=== PATIENT | female | born 1950 | race Caucasian/White ===

== ENCOUNTER → 2017-03-10 | Outpatient (CLI) | payer MEDICARE ==
[~2017-03-10] MED LIST: AMLO5TAB2 PO; ASPI-621 PO; CALC-35 PO; GABA300C10 PO; HYDR25TA6 PO; MELO-184 PO; ONDA4TAB7 PO; OXYC5TAB3 PO; TRAM50TA2 PO; VALS1TAB26 PO; [UNRECOGNIZED DRUG - CODE] PO
[2017-03-13 15:59] LABS: ASPARTATE AMINO TRANSFERASE 17 U/L (15-37); BLOOD UREA NITROGEN 21 mg/dL (7-18)
== END | disposition home or self-care (01) ==
LOC: STAR 10:10
PROVIDERS: ATTEND Orthopaedic Surgery
DX: M17.0 Bilateral primary osteoarthritis of knee (principal); Z96.652 Presence of left artificial knee joint
CPT/HCPCS: 36415; 80053; 81003; 85025; 87081; 87147

== ENCOUNTER 2017-03-19 08:32 | Inpatient (IN) | payer MEDICARE, OTHER ==
[~2017-03-19] VITALS: Ht 154.9 cm; Wt 93.0 kg
[~2017-03-19 08:32] MED LIST changes: +EPINEPHRINE 1 MG/ML, 1ML ONE; +KETOROLAC 60 MG/2 ML ONE; +ROPIvacaine/PF 0.2%, 20 ML ONE; +TRANEXAMIC ACID 100 MG/ML, 10ML ONE; +VANCOMYCIN 1,000 MG ONE
[2017-03-19] MEDS ORDERED: FENTANYL PF 100 MCG/2ML ONE ×2 (10:00→13:07)
[2017-03-19] MEDS ORDERED: MIDAZOLAM 1 MG/ML, 2ML ONE (10:00)
[2017-03-19] MEDS ORDERED: LACTATED RINGERS 1,000 ML IV SCH (10:04)
[2017-03-19 10:05] VITALS: BP 138/78
[2017-03-19] MEDS ORDERED: ACETAMINOPHEN 325 MG TABLET PO PRN (10:30)
[2017-03-19] MEDS ORDERED: LABETALOL 5MG/ML, 20ML IV PRN (10:30)
[2017-03-19] MEDS ORDERED: FENTANYL PF 100 MCG/2ML IV PRN (10:30)
[2017-03-19] MEDS ORDERED: MEPERIDINE/PF 25MG/0.5ML IVPush PRN (10:30)
[2017-03-19] MEDS ORDERED: hydrALAzine 20 MG/ML, 1ML IV PRN (10:30)
[2017-03-19] MEDS ORDERED: PROMETHAZINE 25 MG/ML, 1ML IV PRN (10:30)
[2017-03-19] MEDS ORDERED: OXYcodone 5 MG/5 ML ORAL.SOL UDC PO PRN (10:30)
[2017-03-19] MEDS ORDERED: ONDANSETRON 2MG/ML, 2ML IVPush PRN (10:30)
[2017-03-19] MEDS ORDERED: HYDROmorphone 1 MG/ML, 1ML IV PRN ×2 (10:30→13:00)
[2017-03-19] MEDS ORDERED: ONDANSETRON 2MG/ML, 2ML ONE (10:48)
[2017-03-19] MEDS ORDERED: NEOSTIGMINE 1 MG/ML, 10ML ONE (10:48)
[2017-03-19] MEDS ORDERED: DEXAMETHASONE 4 MG/ML, 1ML ONE (10:48)
[2017-03-19] MEDS ORDERED: PROPOFOL 10 MG/ML, 50ML ONE (10:48)
[2017-03-19] MEDS ORDERED: CEFAZOLIN 1,000 MG ONE (10:48)
[2017-03-19] MEDS ORDERED: TRANEXAMIC ACID 1,000 MG in SODIUM CHLORIDE 0.9% 100 ML IVPB ONE (12:50)
[2017-03-19] MEDS ORDERED: DIAZEPAM 5 MG TABLET PO PRN (13:00)
[2017-03-19] MEDS ORDERED: DIPHENHYDRAMINE 50 MG CAPSULE PO PRN (13:00)
[2017-03-19] MEDS ORDERED: PROMETHAZINE 12.5 MG SUPP PR PRN (13:00)
[2017-03-19] MEDS ORDERED: SENNA/DOCUSATE TABLET PO PRN (13:00)
[2017-03-19] MEDS ORDERED: MAGNESIUM HYDROXIDE 8%, 30ML UDC PO PRN (13:00)
[2017-03-19] MEDS ORDERED: PROMETHAZINE 25 MG/ML, 1ML IM PRN (13:00)
[2017-03-19] MEDS ORDERED: BISACODYL 10 MG SUPP PR PRN (13:00)
[2017-03-19] MEDS ORDERED: ONDANSETRON 4 MG TABLET PO PRN (13:00)
[2017-03-19] MEDS ORDERED: SCOPOLAMINE PATCH, 1.5MG PATCH.TD72 TD SCH (13:00)
[2017-03-19] MEDS ORDERED: HYDROcodone/APAP 5/325 TABLET PO PRN (13:00)
[2017-03-19] MEDS ORDERED: ONDANSETRON 2MG/ML, 2ML IV PRN (13:00)
[2017-03-19] MEDS ORDERED: ZOLPIDEM 5MG TABLET PO PRN (13:00)
[2017-03-19] MEDS ORDERED: ALUMINUM/MAG/SIMETHICONE 30 ML UDC PO PRN (13:00)
[2017-03-19 14:00] VITALS: BP 130/76
[2017-03-19] MEDS: ACETAMINOPHEN 650 MG/20.3 ML UDC PO SCH ×3 (14:42→22:01)
[2017-03-19] MEDS: D5%-0.45% NACL 1,000 ML IV SCH ×2 (14:43→23:59)
[2017-03-19] MEDS: TAMSULOSIN 0.4 MG CAP.ER.24H PO SCH (16:16)
[2017-03-19] MEDS: ASPIRIN 81 MG TABLET EC PO SCH (17:35)
[2017-03-19] MEDS: CEFAZOLIN PMX 2GM/50ML 50 ML IVPB SCH (18:48)
[2017-03-19 21:00] VITALS: BP 108/67
[2017-03-19] MEDS: PREGABALIN 75 MG CAPSULE PO SCH (21:00)
[2017-03-19 21:45] VITALS: BP 108/67
[2017-03-19] MEDS: DOCUSATE 100 MG CAPSULE PO SCH (22:01)
[2017-03-20 00:34] VITALS: BP 104/67
[2017-03-20] MEDS: CEFAZOLIN PMX 2GM/50ML 50 ML IVPB SCH (02:22)
[2017-03-20] MEDS: ACETAMINOPHEN 650 MG/20.3 ML UDC PO SCH ×3 (02:22→10:44)
[2017-03-20 04:09] VITALS: BP 104/63
[2017-03-20] MEDS ORDERED: DEXAMETHASONE 4 MG/ML, 1ML IVPush SCH (06:00)
[2017-03-20] MEDS: ASPIRIN 81 MG TABLET EC PO SCH (06:16)
[2017-03-20 07:43] VITALS: BP 106/60
[2017-03-20] MEDS: D5%-0.45% NACL 1,000 ML IV SCH (08:06)
[2017-03-20] MEDS: DOCUSATE 100 MG CAPSULE PO SCH (08:23)
[2017-03-20] MEDS: TAMSULOSIN 0.4 MG CAP.ER.24H PO SCH (08:23)
[2017-03-20] MEDS: PREGABALIN 75 MG CAPSULE PO SCH (08:23)
[2017-03-20] MEDS ORDERED: MULTIVITAMINS/MINERALS TABLET PO SCH (09:00)
[2017-03-20 10:49] VITALS: BP 119/55
[2017-03-20] MEDS ORDERED: HYDR-3240 PO (12:33)
[2017-03-20] MEDS ORDERED: KETOROLAC 30 MG/1 ML IV SCH (13:00)
== END 2017-03-20 12:45 | disposition home or self-care (01) | DRG 470 ==
LOC: ORIP 08:32 → 4NOR 13:54 → DCLOUNGE 03-20 12:27
PROVIDERS: ADMIT Orthopaedic Surgery; ATTEND Orthopaedic Surgery
PROC: 0SRC0J9 Replacement of Right Knee Joint with Synthetic Substitute, Cemented, Open Approach (ICD-10-PCS; principal; 2017-03-19 11:30)
DX: M17.11 Unilateral primary osteoarthritis, right knee (principal); I10 Essential (primary) hypertension; M25.761 Osteophyte, right knee; Z87.891 Personal history of nicotine dependence; Z79.899 Other long term (current) drug therapy
CPT/HCPCS: 36415; 85014; 85018; C1713; J0171; J0690; J1100; J1885; J2250; J2405; J2704; J2710; J2795; J3010; J3370; C1776; J7120

== ENCOUNTER → 2018-12-09 | Outpatient (CLI) | payer MEDICARE, OTHER ==
[~2018-12-09] MED LIST changes: +ACET-1600 PO; +AMLO-150 PO; +AMLO-262 PO; -AMLO5TAB2 PO; -ASPI-621 PO; +ASPI81TA45 PO; -EPINEPHRINE 1 MG/ML, 1ML ONE; +HYDR-3240 PO; +IBUP200C8 PO; -KETOROLAC 60 MG/2 ML ONE; -MELO-184 PO; +MELO15TA24 PO; +OLME1TAB40 PO; -ROPIvacaine/PF 0.2%, 20 ML ONE; -TRANEXAMIC ACID 100 MG/ML, 10ML ONE; -VANCOMYCIN 1,000 MG ONE; -[UNRECOGNIZED DRUG - CODE] PO; +olmesartan PO
[2018-12-09 15:18] LABS: BASOPHILS # (AUTO) 0.02 x10^3/uL (0-0.1); BASOPHILS % (AUTO) 0 % (0-1); EOSINOPHILS # (AUTO) 0.04 x10^3/uL (0-0.4); EOSINOPHILS % (AUTO) 1 % (1-7); LYMPHOCYTES # (AUTO) 1.36 x10^3/uL (1-3.4); LYMPHOCYTES % (AUTO) 28 % (22-44); MD NO; MEAN CORPUSCULAR HEMOGLOBIN 33.2 pg (27.0-34.8); MEAN CORPUSCULAR HGB CONC 34.5 g/dL (32.4-35.8); MEAN CORPUSCULAR VOLUME 96.5 fL (80-100); MEAN PLATELET VOLUME 8.2 fL (7.4-10.4); MONOCYTES # (AUTO) 0.51 x10^3/uL (0.2-0.8); MONOCYTES % (AUTO) 10 % (2-9); NEUTROPHILS # (AUTO) 2.95 x10^3/uL (1.8-6.8); NEUTROPHILS % (AUTO) 61 % (42-75); PLATELET COUNT 296 x10^3/uL (130-400); RED BLOOD COUNT 4.21 x10^6/uL (3.82-5.3); RED CELL DISTRIBUTION WIDTH 13.5 % (9.6-15.2)
[2018-12-09 15:28] LABS: ALANINE AMINOTRANSFERASE 18 U/L (12-78); ALBUMIN 3.6 g/dL (3.4-5.0); ANION GAP 4 mmol/L (5-15); CALCIUM 8.8 mg/dL (8.5-10.1); CHLORIDE 113 mmol/L (98-107)
[2018-12-09 15:31] LABS: ALKALINE PHOSPHATASE 87 U/L (45-117); BILIRUBIN,TOTAL 0.5 mg/dL (0.2-1.0); CREATININE 0.78 mg/dL (0.55-1.02); TOTAL PROTEIN 6.4 g/dL (6.4-8.2)
== END | disposition home or self-care (01) ==
LOC: STAR 14:11
PROVIDERS: ATTEND Orthopaedic Surgery
DX: Z01.818 Encounter for other preprocedural examination (principal); M17.11 Unilateral primary osteoarthritis, right knee; M17.12 Unilateral primary osteoarthritis, left knee; Z96.653 Presence of artificial knee joint, bilateral
CPT/HCPCS: 36415; 80053; 85025; 87081; 87147; 93005